=== PATIENT | male | born 1945 | race African-American/Black ===

== ENCOUNTER 2016-12-14 09:08 | Emergency (ER) | payer OTHER ==
[~2016-12-14] VITALS: Ht 185.4 cm; Wt 89.8 kg
[2016-12-14] MEDS ORDERED: KOMBIGLYZE XR1 EAC2 PO (09:40)
[2016-12-14] MEDS ORDERED: LIPITOR10 MG PO (09:40)
[2016-12-14 10:00] LABS: ABSOLUTE NEUTROPHILS 3.4 thou/uL (1.4-8.2); BASOPHILS 0.9 % (0.0-2.0); HEMATOCRIT 36.1 % (42.0-52.0); HEMOGLOBIN 12.2 gm/dL (14.0-18.0); LYMPHOCYTES 26.9 % (24.0-44.0); MCH 29.8 pg (26.0-34.0); MCHC 33.8 g/dL (28.0-37.0); MCV 88.2 fL (80.0-100.0); MONOCYTES 10.7 % (1.0-8.0); PLATELET COUNT 324 thou/uL (150-400); POLYS 58.5 % (36.0-66.0); RBC 4.09 mil/uL (4.50-6.00); RDW 14.2 % (10.5-14.5); WBC 5.7 thou/uL (4.0-11.0)
[2016-12-14 10:01] LABS: MANUAL DIFF NO
[2016-12-14] MEDS ORDERED: NAPROSYN500 MG PO (10:55)
[2016-12-14 11:08] VITALS: BP 117/71
== END 2016-12-14 11:08 | disposition home or self-care (01) ==
LOC: ER 09:08
PROVIDERS: Nurse Practitioner
DX: M25.461 Effusion, right knee (principal); E11.9 Type 2 diabetes mellitus without complications; I10 Essential (primary) hypertension

== ENCOUNTER 2017-07-12 12:36 | Emergency (ER) | payer OTHER ==
[~2017-07-12] VITALS: Ht 185.4 cm; Wt 96.2 kg
--- NOTE | ~2017-07-12 | EKG ---
[address] [place] [address] ELECTROCARDIOGRAM REPORT Name: GAGERYANNE Santos Room #: DEP DAVINA Troy#: [id number] Admission: 07/12/17 Attend Phys: Discharge: 07/12/17 Date of : 45 Report #: [id number] THIS REPORT FOR: //name// [facility] ED Test Date: 2017-07-12 Test Time: 12:50:22 Pat Name: RYANNE ALMONTE Department: Room: Gender: M Vehicle Mechanic: OANH : 1945 Requested By: Frankie Braun Order Number: [id number] MD: Vishnu Jean Measurements Intervals [place] Rate: 67 P: 79 DE: 201 QRS: 67 QRSD: 92 T: 49 QT: 384 QTc: 406 Interpretive Statements Sinus rhythm Compared to ECG 12/13/2005 15:49:55 ST (T wave) deviation now present Left ventricular hypertrophy no longer present Electronically Signed On 07-12-2017 16:53:23 TIRE CLASSIFIER by Vishnu Jean [email or web address] <ELECTRONICALLY SIGNED> By: Vishnu Jean MD 07/12/17 [id number] 1250 Vishnu Jean MD /LEXUS
[~2017-07-12 12:36] MED LIST: KOMBIGLYZE XR1 EAC2 PO; LIPITOR10 MG PO; NAPROSYN500 MG PO
[2017-07-12 13:21] LABS: HEMATOCRIT 34.9 % (42.0-52.0); HEMOGLOBIN 11.3 gm/dL (14.0-18.0); MCH 27.6 pg (26.0-34.0); MCHC 32.5 g/dL (28.0-37.0); RBC 4.1 mil/uL (4.50-6.00); RDW 15.3 % (10.5-14.5); WBC 10.8 thou/uL (4.0-11.0)
[2017-07-12 13:35] LABS: ALBUMIN 2.9 g/dL (3.4-5.0); ANION GAP 7 mmol/L (7-16); BUN 14 mg/dL (7-18); CALCIUM 9.9 mg/dL (8.5-10.1); CHLORIDE 100 mmol/L (98-107); CO2 30 mmol/L (21-32); CREATININE 0.9 mg/dL (0.7-1.3); GLUCOSE 129 mg/dL (74-106); MAGNESIUM 1.7 mg/dL (1.8-2.4); POTASSIUM 4.7 mmol/L (3.5-5.1); SGOT 21 U/L (15-37); SGPT 26 U/L (30-65); SODIUM 137 mmol/L (136-145); TOTAL BILIRUBIN 0.3 mg/dL (<0.1-1.0); TOTAL PROTEIN 7.7 g/dL (6.4-8.2); TROPONIN-I < 0.04 ng/mL (<0.06)
[2017-07-12 14:18] VITALS: BP 103/62
== END 2017-07-12 14:22 | disposition home or self-care (01) ==
LOC: ER 12:36
PROVIDERS: Emergency Medicine
DX: R42 Dizziness and giddiness (principal); E11.9 Type 2 diabetes mellitus without complications; I10 Essential (primary) hypertension; F17.210 Nicotine dependence, cigarettes, uncomplicated

== ENCOUNTER → 2018-04-18 | Outpatient (CLI) | payer OTHER ==
--- NOTE | ~2018-04-18 | EKG ---
[address] [address] ELECTROCARDIOGRAM REPORT Name: RYANNE ALMONTE Room #: REG CLI [id number]mission: 04/18/18 Attend Phys: Cam Arreola MD Discharge: Date of : 45 Report #: [id number] THIS REPORT FOR: //name// [facility] Test Date: 2018-04-18 Test Time: 10:26:36 Pat Name: RYANNE ALMONTE Department: Room: Gender: Block Cuber: Uriel THORNTON : 1945 Requested By: Cam Arreola Order Number: [id number] MD: Karlos Quiroz Measurements Intervals [place] Rate: 51 P: 62 [place]: 193 QRS: 71 QRSD: 97 T: 57 QT: 421 QTc: 388 Interpretive Statements Sinus bradycardia Otherwise no significant abnormality Compared to ECG 07/12/2017 12:50:22 No significant change was found Electronically Signed On 04-19-2018 8:48:28 CDT by Karlos Quiroz [email or web address] <ELECTRONICALLY SIGNED> By: Karlos Quiroz MD, [facility] 04/19/18 0848 1026 1026 Karlos Quiroz MD, FACC /EPI
[2018-04-18 09:32] LABS: CREATININE 0.8 mg/dL (0.7-1.3)
== END ==
LOC: CAT 08:40
PROVIDERS: Otolaryngology Plastic Surgery within the Head & Neck
DX: K11.9 Disease of salivary gland, unspecified (principal); M47.812 Spondylosis without myelopathy or radiculopathy, cervical region; H61.23 Impacted cerumen, bilateral; H90.3 Sensorineural hearing loss, bilateral; H93.13 Tinnitus, bilateral